=== PATIENT | female | born 1980 | race Caucasian/White ===

== ENCOUNTER → 2018-12-05 09:27 | Day surgery (SDC) | payer BC ==
[~2018-12-05 09:27] MED LIST: Acetaminophen IV 1GM/100ML * 100 ML ONE; Bacitracin OINTMENT* 0.5% 0.5 oz TUBE ONE; Buffered Lidocaine 1% SYRIN* 1 ML/SYRINGE INTRADERM ONE; Ciprofloxacin 0.3% OPTH.SOL* BTL ONE; Dexamethasone IV* 4 MG/ML 1 ML (4 MG) ONE; EPHEDrine (Pressors)* 50 MG/ML VIAL ONE; EPINEPHRINE 1 MG/ML 1 ML VIAL ONE; Famotidine IV* 10 MG/ML 2 ML (20 mg) IV ONE; Famotidine IV* 10 MG/ML 2 ML (20 mg) ONE; Gelfoam 12-7 ADSORBABL SPONGE* 1 EA SPONGE ONE; Ketorolac INJ* 30 MG/ML 1 ML VIAL ONE; Lactated Ringers 1000 ML Bag* 1,000 ML IV SCH; Lidocaine 1% w EPI 1:100,000* 30 ML VIAL ONE; Lidocaine 2% MPF* 2 ML VIAL ONE; Midazolam* 1 MG/ML 5 ML VIAL (5 MG) ONE; Naloxone* 0.4 MG/ML 1 ML VIAL IV PRN; Ofloxacin 0.3% (Ear Drop)* 5 ml BTL ONE; Ondansetron INJ* 2 MG/ML VIAL IV PRN; Ondansetron INJ* 2 MG/ML VIAL ONE; Propofol* 10 MG/ML 20 ML BTL ONE; fentaNYL* 50 MCG/ML 2 ML VIAL (100 MCG VIAL) IV PRN; fentaNYL* 50 MCG/ML 2 ML VIAL (100 MCG VIAL) ONE; oxyCODONE/Acetamin 5/325 MG* TAB PO PRN
[2018-12-05 15:50] VITALS: BP 117/68
--- NOTE | 2018-12-05 17:18 | OP ---
DATE OF OPERATION: 12/05/18 - [facility] DATE OF : 76 ATTENDING SURGEON: Chas Garcia MD. MANAGEMENT MANAGER: None. ANESTHESIA: General. PRE-OP DIAGNOSIS: Left tympanic membrane perforation. POST-OP DIAGNOSIS: Left tympanic membrane perforation. OPERATIVE PROCEDURE: Left tympanoplasty utilizing a fascia graft underlay technique. ESTIMATED BLOOD LOSS: Negligible. INDICATIONS: This is a 38-year-old woman who has had a nonhealing perforation following episode of acute otitis media. 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 Because of diminished hearing associated with perforation and discomfort, a decision was made to proceed with tympanoplasty. DESCRIPTION OF PROCEDURE: On 12/05/18, the patient was brought to the operating room. General anesthesia was induced and an oral endotracheal tube was placed. The patient's left ear was draped and about 2 cc of 1% lidocaine with 1:100,000 epinephrine was infiltrated into the postauricular sulcus. The ear was then prepped with Betadine and the patient was draped in sterile fashion. A time-out was performed. The left ear was irrigated to remove all Betadine. The perforation was inspected. It was an oval-shaped perforation located inferiorly, with a marginal component at its posterior edge of moderate size. Middle ear mucosa appeared healthy. A 4-quadrant canal injection was made with 1% lidocaine with epinephrine. An angled [place] blade was then used to make an incision around the posterior half of the ear canal. A piece of epi- soaked Gelfoam was then placed into the ear canal. Attention was turned postauricularly. A 15-blade was used to incise the skin postauricularly down to the level of the mastoid periosteum and temporalis fascia. A 1 x 1 cm piece of temporalis fascia was then harvested. It was placed in a press and once flattened was allowed to dry. The mastoid periosteum was then incised along the temporal line and a limb was dropped inferiorly toward the mastoid tip. The mastoid periosteum was then elevated using a periosteal elevator. A Winthrop elevator was used to elevate the posterior canal skin in continuity with the mastoid periosteum until the previously made endaural incision was reached. At this point, a Pioneer drain was placed in through the ear canal, brought out postauricularly, and used to facilitate exposure of the tympanic membrane. At this point, the microscope was brought back into view. The perforation was inspected. The edge was rimmed with a straight pickup forceps and joint knife. Once the perforation was rimmed, a round knife was then used to elevate a tympanomeatal flap. The incudostapedial joint looked fine. The middle ear mucosa appeared healthy. A bed of Floxin-soaked Gelfoam was placed in the middle ear space. The previously harvested graft was then trimmed to appropriate size and laid on top of the bed of Gelfoam, underneath the tympanomeatal flap. The tympano-meatal flap was then placed back into position. The graft was worked until all of the edges were underneath the margins of the perforation and appeared to nicely abut that epithelium. Gelfoam was then placed lateral to the graft abutting the tympanomeatal flap. Some of this was dry, some of this was soaked in Floxin. Once the ear canal was partially packed with Gelfoam, the mastoid periosteum was closed. The remainder of the ear canal was filled with Floxin-soaked Gelfoam and then skin was closed at the end of the procedure. A Grady dressing was applied. The patient was then returned to the care of the anesthesiologist, extubated, and delivered to the PACU in stable condition. [id number] #: [id number] MITZY
== END | disposition home or self-care (01) ==
LOC: OR 09:27
PROVIDERS: ATTEND Otolaryngology
DX: H72.02 Central perforation of tympanic membrane, left ear (principal); R01.1 Cardiac murmur, unspecified; R00.2 Palpitations; J30.89 Other allergic rhinitis
CPT/HCPCS: 81025; A9270-GY; J1100; J1885; J2250; J2405; J2704; J3010